=== PATIENT | female | born 1975 | race Caucasian/White ===

== ENCOUNTER 2022-07-22 12:08 | Day surgery (SDC) | payer BC, SELFPAY ==
--- NOTE | 2022-07-22 12:19 | US_ITS ---
[address] [address] Patient Name: DEANDRE MCDONALD MRN: [id number] date: 1975 Sex: F Assigned Patient Location: US Current Patient Location: US Accession/Order Number: [id number] Exam Date: 07/22/2022 12:20 Report Date: 07/22/2022 15:03 At the request of: IRMA BENNETT Procedure: US biopsy thyroid EXAMINATION: US biopsy thyroid HISTORY: Left thyroid nodule COMPARISON: No relevant comparison available. TECHNIQUE: After obtaining informed consent, ultrasound-guided fine needle aspiration was performed in the usual sterile manner. FINDINGS: IMAGING: Ultrasound. BIOPSY NEEDLE: 25-gauge; 3 separate passes LOCATION: Inferior left lobe 1.9 x 1.2 x 0.9 cm nodule. SPECIMEN TYPE: Cellular tissue. LOCAL ANESTHETIC: Buffered Xylocaine. COMPLICATIONS: None. LABORATORY: Prepared slide smears and washings for cell block evaluation. OTHER: Negative. PATHOLOGY: Pending. An addendum will be added when results are available. IMPRESSION: 1. Uneventful ultrasound guided fine needle aspiration (FNA). 2. Pathology results are pending. Electronically authenticated by: JESSEE ARGUELLO Date: 07/22/2022 15:03
[2022-07-22] MEDS: LIDOCAINE HCL 10 ML, SODIUM BICARBONATE 1 MEQ INJ (13:25)
[2022-07-22 15:52] VITALS: BP 169/101; PULSE 55; RESP 18; O2SAT 98
--- NOTE | 2022-07-22 15:57 | PC.NURSE ---
Time Out completed prior to procedure at [address] Cholo Harmon, Arielle Gordillo present in room
== END 2022-07-22 13:44 ==
PROVIDERS: Radiology Diagnostic Radiology; PCP Otolaryngology; Visit Provider Otolaryngology
DX: E04.1 Nontoxic single thyroid nodule (principal)
CPT/HCPCS: 10005; 88173

== ENCOUNTER 2023-06-06 18:04 | Emergency (ER) | payer BC, SELFPAY ==
[2023-06-06] VITALS (17 sets, daily range): BP systolic 151–190; BP diastolic 90–137; PULSE 63–84; TEMP 37; O2SAT 74–99; BMI 40.4
--- NOTE | 2023-06-06 18:06 | ECG_ITS ---
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
--- NOTE | 2023-06-06 18:12 | XR_ITS ---
The [address] [address] Patient Name: DEANDRE MCDONLAD MRN: [id number] date: 1975 Sex: F Assigned Patient Location: ER Current Patient Location: ED.MAIN Accession/Order Number: [id number] Exam Date: 06/06/2023 19:16 Report Date: 06/06/2023 20:05 At the request of: ROSEANNA GREEN Procedure: XR chest 1V EXAM: XR chest 1V HISTORY: chest pain COMPARISON: None. TECHNIQUE: Single AP radiograph of the chest FINDINGS: No pneumothorax, pleural effusion or consolidation. Normal heart size. Moderate degenerative changes of the acromioclavicular joints. Right Port-A-Cath with tip projecting over the superior cavoatrial junction. XR/XR chest 1V IMPRESSION: No acute cardiopulmonary process. Electronically authenticated by: MARGY HWANG Date: 06/06/2023 20:05
--- NOTE | 2023-06-06 18:14 | ED.GENADUL1 ---
Documented by User: ALEX Ponce 06/06/23 21:04 HPI HPI - General Adult General Chief complaint: Chest Pain Stated complaint: Chest Pain Time Seen by Provider: 06/06/23 18:05 Source: patient Mode of arrival: walk-in History of Present Illness HPI narrative: Patient is a 48-year-old female DM type 2, Thyoid CA, HTN, , former smoker quit 6 years ago who presents to the ER with concerns of left-sided chest pain. Patient reports pain in the left chest sharp radiating to her back, left arm and left side of her neck. Mild nausea. Patient states she has not eaten today, was driving with her to work when she felt off pulled over to switch drivers and had a near syncopal episode. Patient states she did not think she lost consciousness but noticed that her chest pain symptoms have intensified for the last 30 minutes. She took 2 nitroglycerin prior to arrival without relief. Patient states her was unable to get off work and continued to go to work after dropping her off. Patient reports having a cardiac catheterization 3 weeks ago and is scheduled to see a senior foreman next week. ( aspirin allergy is anaphylaxis) - Pt reports she can tolerate IV contrast studies with use of Pre-medication. Onset (ago): minute(s) (30) Location: Reports chest Radiation: Reports neck and extremity (left arm) Severity: moderate Quality: Reports sharp Pain Consistency: Reports constant Relieving factors: Reports none Exacerbating factors: Reports none Associated symptoms: Reports denies other symptoms Related Data Home Medications ?Medication ?Instructions ?Recorded ?Confirmed L.acidoph, paracasei,B. lactis 10 cell PO 07/18/22 billion cell capsule (Digestive Advantage Advanced Probiotic) biotin 10 mg PO BID 07/18/22 07/22/22 cholecalciferol 50,000 units PO .2 times a week 07/18/22 07/22/22 cholestyramine-aspartame 4 gram ea 07/18/22 oral powder for susp in a packet (Cholestyramine Light) clonidine HCl 0.1 mg tablet 0.1 mg PO DAILY 07/18/22 06/06/23 fluticasone 113 mcg-salmeterol 14 1 inh inhalation BID 07/18/22 06/06/23 mcg/actuation breath activated powdr folic acid 1 mg tablet 1 mg PO DAILY 07/18/22 06/06/23 hydroxychloroquine 200 mg tablet 200 mg PO BID 07/18/22 07/22/22 insulin lispro 100 unit/mL 1 sliding scale dose subcut 07/18/22 07/18/22 subcutaneous pen USEASDIRECTD levothyroxine 100 mcg capsule 100 mcg PO DAILY 07/18/22 07/22/22 lisinopril 10 mg tablet 10 mg PO DAILY 07/18/22 07/22/22 loratadine 10 mg tablet (Claritin) 10 mg PO DAILY 07/18/22 07/22/22 metoprolol tartrate 50 mg tablet 25 mg PO BID 07/18/22 07/22/22 multivitamin 1 tab PO DAILY 07/18/22 06/06/23 pantoprazole 40 mg tablet,delayed 40 mg PO DAILY 07/18/22 06/06/23 release cholestyramine (with sugar) 4 gram 1 ea PO DAILY 06/06/23 06/06/23 powder for susp in a packet docusate sodium 100 mg capsule 100 mg PO BID PRN constipation 06/06/23 06/06/23 levothyroxine 100 mcg tablet 100 mcg PO DAILY 06/06/23 06/06/23 lisinopril 20 mg tablet 20 mg PO DAILY 06/06/23 06/06/23 mometasone-formoterol HFA 200 2 puff inhalation BID 06/06/23 06/06/23 mcg-5 mcg/actuation aerosol inhaler (Dulera) nifedipine 30 mg tablet,extended 30 mg PO DAILY 06/06/23 06/06/23 release 24 hr tizanidine 4 mg tablet 4 mg PO TID PRN muscle spasticity 06/06/23 06/06/23 Allergies Allergy/AdvReac Type Severity Reaction Status Date / Time amoxicillin Allergy Verified 07/18/22 14:45 aspirin Allergy Verified 07/18/22 14:45 clindamycin Allergy Verified 07/18/22 14:45 Penicillins Allergy Verified 07/18/22 14:45 ketamine AdvReac Severe Verified 06/06/23 18:19 povidone-iodine AdvReac Severe Verified 07/18/22 14:45 latex AdvReac Verified 07/18/22 14:45 augmentin Allergy Uncoded 07/18/22 14:45 ketoralac Allergy Uncoded 07/18/22 14:45 Opioid HPI Opioid Management Most Recent Opioid Data: Ur Phencyclidine Scrn Negative (NEGATIVE) 06/06/23 19:50 Review of Systems ROS Constitutional Denies: fever or chills Eyes Denies: change in vision Ears, nose, mouth, and throat Denies: throat pain or neck pain Cardiovascular Reports: chest pain; Denies: palpitations or edema Respiratory Denies: shortness of breath, cough or wheezing Gastrointestinal Reports: nausea; Denies: abdominal pain or vomiting Genitourinary Denies: painful urination Musculoskeletal Denies: back pain Integumentary/Breast Denies: rash or itching Neurological Denies: headache Psychiatric Denies: anxiety Endocrine Denies: excessive urination Allergic/Immunologic Denies: hives [facility] Medical History (Updated 06/06/23 @ 21:04 by ALEX Ponce) Normal colonoscopy Normal esophagogastroduodenoscopy (EGD) ?Z01.89 - Encounter for other specified special examinations (ICD-10) Anxiety ?F41.9 - Anxiety disorder, unspecified (ICD-10) Hiatal hernia ?K44.9 - Diaphragmatic hernia without obstruction or gangrene (ICD-10) Asthma ?J45.909 - Unspecified asthma, uncomplicated (ICD-10) CVA (cerebral vascular accident) ?I63.9 - Cerebral infarction, unspecified (ICD-10) Myocardial infarct ?I21.9 - Acute myocardial infarction, unspecified (ICD-10) HTN (hypertension) ?I10 - Essential (primary) hypertension (ICD-10) Pulmonary embolism ?I26.99 - Other pulmonary embolism without acute cor pulmonale (ICD-10) Renal lithiasis ?N20.0 - Calculus of kidney (ICD-10) Fibromyalgia ?M79.7 - Fibromyalgia (ICD-10) Breast cancer, left breast ?C50.912 - Malignant neoplasm of unspecified site of left female breast (ICD-10) Arthritis ?M19.90 - Unspecified osteoarthritis, unspecified site (ICD-10) Lupus (systemic lupus erythematosus) ?M32.9 - Systemic lupus erythematosus, unspecified (ICD-10) Neuropathy ?G62.9 - Polyneuropathy, unspecified (ICD-10) Anemia ?D64.9 - Anemia, unspecified (ICD-10) Diabetes ?E11.9 - Type 2 diabetes mellitus without complications (ICD-10) Rheumatoid arthritis ?M06.9 - Rheumatoid arthritis, unspecified (ICD-10) Multiple sclerosis ?G35 - Multiple sclerosis (ICD-10) Hypothyroid ?E03.9 - Hypothyroidism, unspecified (ICD-10) Surgical History (Updated 07/18/22 @ 15:20 by Macarena Chairez) S/P lumpectomy, left breast ?Z98.890 - Other specified postprocedural states (ICD-10) History of hysterectomy ?Z90.710 - Acquired absence of both cervix and uterus (ICD-10) Previous section ?Z98.891 - History of uterine scar from previous surgery (ICD-10) H/O tubal ligation ?Z98.51 - Tubal ligation status (ICD-10) S/P appy ?Z90.49 - Acquired absence of other specified parts of digestive tract (ICD-10) History of cholecystectomy ?Z90.49 - Acquired absence of other specified parts of digestive tract (ICD-10) History of Bryanna-en-Y gastric bypass ?Z98.84 - Bariatric surgery status (ICD-10) Exam Narrative Exam Narrative: Nurses notes and vital signs reviewed and patient is not hypoxic. General: The patient appears well but anxious noting chest pain Skin: Warm, dry, no pallor noted. Head: Normocephalic, atraumatic Neck: Supple, trachea mid-line, no tenderness, no lymphadenopathy Eye: Pupils are equal, round and reactive to light, EOMI Ears, Nose, Mouth, and Throat: Poor dentition, external exam unremarkable. Cardiovascular: Regular Rate and Rhythm Respiratory: Patient is in no distress, no accessory muscle use, lungs are clear to auscultation, no wheezing, rales or rhonchi. Chest Wall: no tenderness Back: non-tender, no CVA tenderness Musculoskeletal: normal ROM, no tenderness, no swelling GI: Normal bowel sounds, no tenderness to palpation, no masses appreciated. No rebound, guarding, or rigidity noted. Neurological: A&O x4 Psychiatric: Cooperative Constitutional Vital Signs, click to edit/add: Last Vital Signs Temp 98.6 F 06/06/23 18:09 Pulse 71 06/06/23 19:16 Resp 17 06/06/23 19:16 BP 170/90 H 06/06/23 21:24 Pulse Ox 99 06/06/23 18:30 O2 Del Method Room Air 06/06/23 18:54 Course Vital Signs Vital signs: Vital Signs Temperature 98.6 F 06/06/23 18:09 Pulse Rate 72 06/06/23 18:09 Respiratory Rate 18 06/06/23 18:09 Blood Pressure 190/125 H 06/06/23 18:09 Pulse Oximetry 96 06/06/23 18:09 Oxygen Delivery Method Room Air 06/06/23 18:09 Temperature 98.6 F 06/06/23 18:09 Pulse Rate 71 06/06/23 19:16 Respiratory Rate 17 06/06/23 19:16 Blood Pressure 170/90 H 06/06/23 21:24 Pulse Oximetry 99 06/06/23 18:30 Oxygen Delivery Method Room Air 06/06/23 18:54 Medical Decision Making MDM Narrative Medical decision making narrative: Patient reports being on Eliquis previously 1 year then Dc'd. patient reports prior history of PE. She reports an anaphylactic allergy to aspirin products. She reports a allergy to contrast IV products, she has tolerated studies but require premedication. She is agreeable to start premedication treatment at this time for further evaluation of her symptoms with concern of sharp left sided chest pain, near syncopal episode. Cardiac Cath 05/17/23 Neg for occulsion. Symptoms today noted for hypertension, patient on multiple medications for blood pressure. She was given her third nitroglycerin tablet and placed on Nitropaste. Her blood pressure has improved to 160/92.Patient complaining of headache from nitroglycerin, given Tylenol for pain. We discussed waiting for premedication for CTA of the chest with risks and benefits discussed given her prior history of PE, patient agreeable. 2 sets of cardiac enzymes negative, CTA of the chest with patient's concern of prior PE, near syncopal episode and left-sided sharp chest pain also negative, patient had cardiac cath at the beginning of the month that was negative for occlusion. Recommend she continue with [id number] medications Tylenol and follow-up to her senior foreman for ongoing evaluation. I do not feel narcotic in medication is indicated at this time.Pt given 25 Mdeq potassium for correction The patient is to followup with primary care physician/ Cardiology in next 2-3 days or to return to the emergency department should any of the signs or symptoms worsen or new symptoms develop. Patient had questions answered. The patient agrees with the following Diagnosis and Treatment plan and the patient will be discharged home. Medical Records Medical records reviewed: Yes I reviewed the patient's medical records Medical records narrative: Cardiac catheterization report 05/17/2023:Postprocedure interpretation normal coronary arteries, evidence of coronary spasm at baseline relieved with IC nitroglycerin, normal left ventricular function. Lab Data Lab results reviewed: Yes I reviewed the patient's lab results Labs: Lab Results 06/06/23 06/06/23 06/06/23 Range/Units 18:48 19:47 19:50 WBC 5.9 (4.0-11.0) 10^3/uL RBC 4.54 (4.20-5.40) 10^6/uL Hgb 13.4 (12.0-16.0) g/dL Hct 40.7 (36.0-48.0) % MCV 89.6 (81.0-99.0) fL MCH 29.5 (26.7-34.0) pg MCHC 32.9 (29.9-35.2) g/dL RDW 12.7 (11.0-15.0) % Plt Count 257 (150-450) 10^3/uL MPV 9.7 (9.5-13.5) fL Neut % (Auto) 64.1 (43.0-75.0) % Lymph % (Auto) 26.2 (20.5-60.0) % [place] % (Auto) 7.3 (1.7-12.0) % Eos % (Auto) 1.9 (0.9-7.0) % Baso % (Auto) 0.3 (0.2-2.0) % Neut # (Auto) 3.8 (1.4-6.5) 10^3/uL Lymph # (Auto) 1.5 (1.2-3.8) 10^3/uL [place] # (Auto) 0.4 (0.3-0.8) 10^3/uL Eos # (Auto) 0.1 (0.0-0.7) 10^3/uL Baso # (Auto) 0.0 (0.0-0.1) 10^3/uL Abs Immat Gran (auto) 0.01 (0.00-0.03) 10^3/uL Imm/Tot Granulo (auto) 0.2 (0.0-0.5) % PT 9.5 (9.0-11.6) sec INR <0.93 APTT 29.7 (22.3-36.2) sec Sodium 144 (136-145) mmol/L Potassium 3.3 L (3.5-5.1) mmol/L Chloride 107 (98-107) mmol/L Carbon Dioxide 27.0 (21.0-32.0) mmol/L Anion Gap 13.3 BUN 14.0 (7.0-18.0) mg/dL Creatinine 1.07 H (0.55-1.02) mg/dL Est GFR ( Amer) >60 (>=60) Est GFR (Non-Af Amer) 55 L (>=60) BUN/Creatinine Ratio 13.1 Glucose 97 (74-106) mg/dL Calcium 8.5 (8.5-10.1) mg/dL Total Bilirubin 0.3 (0.2-1.0) mg/dL AST 12 L (15-37) U/L ALT 19 (14-59) U/L Alkaline Phosphatase 159 H (46-116) U/L Troponin I High Sens 8.8 5.9 (4.0-51.3) pg/mL Total Protein 7.7 (6.4-8.2) g/dL Albumin 3.7 (3.4-5.0) g/dL Globulin 4.0 g/dL Albumin/Globulin Ratio 0.9 Amylase 34 (25-115) U/L Lipase 38.0 (16.0-77.0) U/L Serum HCG, Qual Negative (NEGATIVE) Urine Color Lt. yellow (YELLOW) Urine Clarity Clear (CLEAR) Urine pH 5.5 (5.0-9.0) Ur Specific [place] 1.010 (1.005-1.025) Urine Protein Negative (NEG/TRACE) mg/dL Urine Glucose (UA) Negative (NEGATIVE) mg/dL Urine Ketones Negative (NEGATIVE) mg/dL Urine Occult Blood Small A (NEGATIVE) Urine Nitrite Negative (NEGATIVE) Urine Bilirubin Negative (NEGATIVE) Urine Urobilinogen 0.2 (0.2-1.0) EU/dL Ur Leukocyte Esterase Negative (NEGATIVE) Urine RBC 0-2 (0-2) #/HPF Urine WBC 0-2 A (NONE SEEN) #/HPF Ur Squamous Epith Cells Moderate A (NONE/RARE) #/LPF Urine Crystals None seen (None Seen) #/HPF Urine Bacteria Trace A (NONE SEEN) #/HPF Urine Casts None seen (NONE SEEN) #/LPF Urine Mucus None seen (NONE SEEN) Ur Culture Indicated? No Urine Opiates Screen Negative (NEGATIVE) Ur Buprenorphine Scrn Negative (NEGATIVE) Ur Oxycodone Screen Negative (NEGATIVE) Urine Methadone Screen Negative (NEGATIVE) Ur Barbiturates Screen Negative (NEGATIVE) U Tricyclic Antidepress Negative (NEGATIVE) Ur Phencyclidine Scrn Negative (NEGATIVE) Ur Amphetamines Screen Negative (NEGATIVE) U Methamphetamines Scrn Negative (NEGATIVE) U Benzodiazepines Scrn Negative (NEGATIVE) Urine Cocaine Screen Negative (NEGATIVE) U Cannabinoids Screen Positive A (NEGATIVE) Imaging Data Chest x-ray: Radiologist's impression: ITS Impressions Chest X-Ray 06/06/23 18:12 IMPRESSION: No acute cardiopulmonary process. Electronically authenticated by: MARGY HWANG Date: 06/06/2023 20:05 Chest CTA 06/06/23 18:30 IMPRESSION: 1. No evidence of pulmonary embolism. Electronically authenticated by: AARON PASTOR Date: 06/06/2023 20:42 CT scan - chest: Radiologist's impression: ITS Impressions Chest X-Ray 06/06/23 18:12 IMPRESSION: No acute cardiopulmonary process. Electronically authenticated by: MARGY HWANG Date: 06/06/2023 20:05 Chest CTA 06/06/23 18:30 IMPRESSION: 1. No evidence of pulmonary embolism. Electronically authenticated by: AARON PASTOR Date: 06/06/2023 20:42 Patient was observed with no evidence of allergic reaction post contrast study ECG Data Attestation: I personally reviewed and interpreted this ECG as follows: Interpretation: EKG interpretation: 18:13 Emergency Department physician interpretation, normal sinus rhythm 67 bpm, no ectopy, no ST segment elevation, normal axis. Discharge Plan Discharge Stand Alone Forms: Portal Instructions Chief Complaint: Chest Pain Clinical Impression: Chest pain, Hypertension Patient Disposition: Home, Self-Care Time of Disposition Decision: 21:02 Condition: Good Prescriptions / Home Meds: No Action biotin 10 mg PO BID cholecalciferol 50,000 units PO .2 times a week cholestyramine-aspartame [Cholestyramine Light] 4 gram powder in packet clonidine HCl 0.1 mg tablet 0.1 mg PO DAILY fluticasone propion-salmeterol 113-14 mcg/actuation aerosol powdr breath activated 1 inh inhalation BID folic acid 1 mg tablet 1 mg PO DAILY hydroxychloroquine 200 mg tablet 200 mg PO BID insulin lispro 100 unit/mL insulin pen 1 sliding scale dose subcut USEASDIRECTD levothyroxine 100 mcg capsule 100 mcg PO DAILY lisinopril 10 mg tablet 10 mg PO DAILY metoprolol tartrate 50 mg tablet 25 mg PO BID pantoprazole 40 mg tablet,delayed release (DR/EC) 40 mg PO DAILY loratadine [Claritin] 10 mg tablet 10 mg PO DAILY multivitamin Tablet 1 tab PO DAILY Digestive Advantage Advanced 10 billion cell capsule PO cholestyramine (with sugar) 4 gram powder in packet 1 ea PO DAILY docusate sodium 100 mg capsule 100 mg PO BID PRN (Reason: constipation) levothyroxine 100 mcg tablet 100 mcg PO DAILY lisinopril 20 mg tablet 20 mg PO DAILY Dulera 200-5 mcg/actuation HFA aerosol inhaler 2 puff INHALATION BID nifedipine 30 mg tablet extended release 24hr 30 mg PO DAILY tizanidine 4 mg tablet 4 mg PO TID PRN (Reason: muscle spasticity) Print Language: Ukrainian Additional Instructions: Keep your appointment with cardiology clinic next week Referrals: Miroslava Torrez NP [Primary Care Provider] - As soon as possible Discharge Date/Time: 06/06/23 21:26 Documented by User: Mustapha Marcus MD 06/07/23 20:05 HPI HPI - General Adult General Chief complaint: Chest Pain Stated complaint: Chest Pain Time Seen by Provider: 06/06/23 18:05 Related Data Home Medications ?Medication ?Instructions ?Recorded ?Confirmed L.acidoph, paracasei,B. lactis 10 cell PO 07/18/22 billion cell capsule (Digestive Advantage Advanced Probiotic) biotin 10 mg PO BID 07/18/22 07/22/22 cholecalciferol 50,000 units PO .2 times a week 07/18/22 07/22/22 cholestyramine-aspartame 4 gram ea 07/18/22 oral powder for susp in a packet (Cholestyramine Light) clonidine HCl 0.1 mg tablet 0.1 mg PO DAILY 07/18/22 06/06/23 fluticasone 113 mcg-salmeterol 14 1 inh inhalation BID 07/18/22 06/06/23 mcg/actuation breath activated powdr folic acid 1 mg tablet 1 mg PO DAILY 07/18/22 06/06/23 hydroxychloroquine 200 mg tablet 200 mg PO BID 07/18/22 07/22/22 insulin lispro 100 unit/mL 1 sliding scale dose subcut 07/18/22 07/18/22 subcutaneous pen USEASDIRECTD levothyroxine 100 mcg capsule 100 mcg PO DAILY 07/18/22 07/22/22 lisinopril 10 mg tablet 10 mg PO DAILY 07/18/22 07/22/22 loratadine 10 mg tablet (Claritin) 10 mg PO DAILY 07/18/22 07/22/22 metoprolol tartrate 50 mg tablet 25 mg PO BID 07/18/22 07/22/22 multivitamin 1 tab PO DAILY 07/18/22 06/06/23 pantoprazole 40 mg tablet,delayed 40 mg PO DAILY 07/18/22 06/06/23 release cholestyramine (with sugar) 4 gram 1 ea PO DAILY 06/06/23 06/06/23 powder for susp in a packet docusate sodium 100 mg capsule 100 mg PO BID PRN constipation 06/06/23 06/06/23 levothyroxine 100 mcg tablet 100 mcg PO DAILY 06/06/23 06/06/23 lisinopril 20 mg tablet 20 mg PO DAILY 06/06/23 06/06/23 mometasone-formoterol HFA 200 2 puff inhalation BID 06/06/23 06/06/23 mcg-5 mcg/actuation aerosol inhaler (Dulera) nifedipine 30 mg tablet,extended 30 mg PO DAILY 06/06/23 06/06/23 release 24 hr tizanidine 4 mg tablet 4 mg PO TID PRN muscle spasticity 06/06/23 06/06/23 Allergies Allergy/AdvReac Type Severity Reaction Status Date / Time amoxicillin Allergy Verified 07/18/22 14:45 aspirin Allergy Verified 07/18/22 14:45 clindamycin Allergy Verified 07/18/22 14:45 Penicillins Allergy Verified 07/18/22 14:45 ketamine AdvReac Severe Verified 06/06/23 18:19 povidone-iodine AdvReac Severe Verified 07/18/22 14:45 latex AdvReac Verified 07/18/22 14:45 augmentin Allergy Uncoded 07/18/22 14:45 ketoralac Allergy Uncoded 07/18/22 14:45 Opioid HPI Opioid Management Most Recent Opioid Data: Ur Phencyclidine Scrn Negative (NEGATIVE) 06/06/23 19:50 PFSH PFSH Medical History (Updated 06/06/23 @ 21:04 by ALEX Ponce) Normal colonoscopy Normal esophagogastroduodenoscopy (EGD) ?Z01.89 - Encounter for other specified special examinations (ICD-10) Anxiety ?F41.9 - Anxiety disorder, unspecified (ICD-10) Hiatal hernia ?K44.9 - Diaphragmatic hernia without obstruction or gangrene (ICD-10) Asthma ?J45.909 - Unspecified asthma, uncomplicated (ICD-10) CVA (cerebral vascular accident) ?I63.9 - Cerebral infarction, unspecified (ICD-10) Myocardial infarct ?I21.9 - Acute myocardial infarction, unspecified (ICD-10) HTN (hypertension) ?I10 - Essential (primary) hypertension (ICD-10) Pulmonary embolism ?I26.99 - Other pulmonary embolism without acute cor pulmonale (ICD-10) Renal lithiasis ?N20.0 - Calculus of kidney (ICD-10) Fibromyalgia ?M79.7 - Fibromyalgia (ICD-10) Breast cancer, left breast ?C50.912 - Malignant neoplasm of unspecified site of left female breast (ICD-10) Arthritis ?M19.90 - Unspecified osteoarthritis, unspecified site (ICD-10) Lupus (systemic lupus erythematosus) ?M32.9 - Systemic lupus erythematosus, unspecified (ICD-10) Neuropathy ?G62.9 - Polyneuropathy, unspecified (ICD-10) Anemia ?D64.9 - Anemia, unspecified (ICD-10) Diabetes ?E11.9 - Type 2 diabetes mellitus without complications (ICD-10) Rheumatoid arthritis ?M06.9 - Rheumatoid arthritis, unspecified (ICD-10) Multiple sclerosis ?G35 - Multiple sclerosis (ICD-10) Hypothyroid ?E03.9 - Hypothyroidism, unspecified (ICD-10) Surgical History (Updated 07/18/22 @ 15:20 by Macarena Chairez) S/P lumpectomy, left breast ?Z98.890 - Other specified postprocedural states (ICD-10) History of hysterectomy ?Z90.710 - Acquired absence of both cervix and uterus (ICD-10) Previous section ?Z98.891 - History of uterine scar from previous surgery (ICD-10) H/O tubal ligation ?Z98.51 - Tubal ligation status (ICD-10) S/P appy ?Z90.49 - Acquired absence of other specified parts of digestive tract (ICD-10) History of cholecystectomy ?Z90.49 - Acquired absence of other specified parts of digestive tract (ICD-10) History of Bryanna-en-Y gastric bypass ?Z98.84 - Bariatric surgery status (ICD-10) Exam Constitutional Vital Signs, click to edit/add: Last Vital Signs Temp 98.6 F 06/06/23 18:09 Pulse 71 06/06/23 19:16 Resp 17 06/06/23 19:16 BP 170/90 H 06/06/23 21:24 Pulse Ox 99 06/06/23 18:30 O2 Del Method Room Air 06/06/23 18:54 Course Vital Signs Vital signs: Vital Signs Temperature 98.6 F 06/06/23 18:09 Pulse Rate 72 06/06/23 18:09 Respiratory Rate 18 06/06/23 18:09 Blood Pressure 190/125 H 06/06/23 18:09 Pulse Oximetry 96 06/06/23 18:09 Oxygen Delivery Method Room Air 06/06/23 18:09 Temperature 98.6 F 06/06/23 18:09 Pulse Rate 71 06/06/23 19:16 Respiratory Rate 17 06/06/23 19:16 Blood Pressure 170/90 H 06/06/23 21:24 Pulse Oximetry 99 06/06/23 18:30 Oxygen Delivery Method Room Air 06/06/23 18:54 Medical Decision Making MDM Narrative Medical decision making narrative: Patient reports being on Eliquis previously 1 year then Dc'd. patient reports prior history of PE. She reports an anaphylactic allergy to aspirin products. She reports a allergy to contrast IV products, she has tolerated studies but require premedication. She is agreeable to start premedication treatment at this time for further evaluation of her symptoms with concern of sharp left sided chest pain, near syncopal episode. Cardiac Cath 05/17/23 Neg for occulsion. Symptoms today noted for hypertension, patient on multiple medications for blood pressure. She was given her third nitroglycerin tablet and placed on Nitropaste. Her blood pressure has improved to 160/92.Patient complaining of headache from nitroglycerin, given Tylenol for pain. We discussed waiting for premedication for CTA of the chest with risks and benefits discussed given her prior history of PE, patient agreeable. 2 sets of cardiac enzymes negative, CTA of the chest with patient's concern of prior PE, near syncopal episode and left-sided sharp chest pain also negative, patient had cardiac cath at the beginning of the month that was negative for occlusion. Recommend she continue with [id number] medications Tylenol and follow-up to her senior foreman for ongoing evaluation. I do not feel narcotic in medication is indicated at this time.Pt given 25 Mdeq potassium for correction The patient is to followup with primary care physician/ Cardiology in next 2-3 days or to return to the emergency department should any of the signs or symptoms worsen or new symptoms develop. Patient had questions answered. The patient agrees with the following Diagnosis and Treatment plan and the patient will be discharged home. I, Dr Marcus, have reviewed the above progress note and course of action in the ER; agree with the above. I have gone over history and physical, and discussed disposition and treatment plan with the patient. Lab Data Labs: Lab Results 06/06/23 06/06/23 06/06/23 Range/Units 18:48 19:47 19:50 WBC 5.9 (4.0-11.0) 10^3/uL RBC 4.54 (4.20-5.40) 10^6/uL Hgb 13.4 (12.0-16.0) g/dL Hct 40.7 (36.0-48.0) % MCV 89.6 (81.0-99.0) fL MCH 29.5 (26.7-34.0) pg MCHC 32.9 (29.9-35.2) g/dL RDW 12.7 (11.0-15.0) % Plt Count 257 (150-450) 10^3/uL MPV 9.7 (9.5-13.5) fL Neut % (Auto) 64.1 (43.0-75.0) % Lymph % (Auto) 26.2 (20.5-60.0) % [place] % (Auto) 7.3 (1.7-12.0) % Eos % (Auto) 1.9 (0.9-7.0) % Baso % (Auto) 0.3 (0.2-2.0) % Neut # (Auto) 3.8 (1.4-6.5) 10^3/uL Lymph # (Auto) 1.5 (1.2-3.8) 10^3/uL [place] # (Auto) 0.4 (0.3-0.8) 10^3/uL Eos # (Auto) 0.1 (0.0-0.7) 10^3/uL Baso # (Auto) 0.0 (0.0-0.1) 10^3/uL Abs Immat Gran (auto) 0.01 (0.00-0.03) 10^3/uL Imm/Tot Granulo (auto) 0.2 (0.0-0.5) % PT 9.5 (9.0-11.6) sec INR <0.93 APTT 29.7 (22.3-36.2) sec Sodium 144 (136-145) mmol/L Potassium 3.3 L (3.5-5.1) mmol/L Chloride 107 (98-107) mmol/L Carbon Dioxide 27.0 (21.0-32.0) mmol/L Anion Gap 13.3 BUN 14.0 (7.0-18.0) mg/dL Creatinine 1.07 H (0.55-1.02) mg/dL Est GFR ( Amer) >60 (>=60) Est GFR (Non-Af Amer) 55 L (>=60) BUN/Creatinine Ratio 13.1 Glucose 97 (74-106) mg/dL Calcium 8.5 (8.5-10.1) mg/dL Total Bilirubin 0.3 (0.2-1.0) mg/dL AST 12 L (15-37) U/L ALT 19 (14-59) U/L Alkaline Phosphatase 159 H (46-116) U/L Troponin I High Sens 8.8 5.9 (4.0-51.3) pg/mL Total Protein 7.7 (6.4-8.2) g/dL Albumin 3.7 (3.4-5.0) g/dL Globulin 4.0 g/dL Albumin/Globulin Ratio 0.9 Amylase 34 (25-115) U/L Lipase 38.0 (16.0-77.0) U/L Serum HCG, Qual Negative (NEGATIVE) Urine Color Lt. yellow (YELLOW) Urine Clarity Clear (CLEAR) Urine pH 5.5 (5.0-9.0) Ur Specific [place] 1.010 (1.005-1.025) Urine Protein Negative (NEG/TRACE) mg/dL Urine Glucose (UA) Negative (NEGATIVE) mg/dL Urine Ketones Negative (NEGATIVE) mg/dL Urine Occult Blood Small A (NEGATIVE) Urine Nitrite Negative (NEGATIVE) Urine Bilirubin Negative (NEGATIVE) Urine Urobilinogen 0.2 (0.2-1.0) EU/dL Ur Leukocyte Esterase Negative (NEGATIVE) Urine RBC 0-2 (0-2) #/HPF Urine WBC 0-2 A (NONE SEEN) #/HPF Ur Squamous Epith Cells Moderate A (NONE/RARE) #/LPF Urine Crystals None seen (None Seen) #/HPF Urine Bacteria Trace A (NONE SEEN) #/HPF Urine Casts None seen (NONE SEEN) #/LPF Urine Mucus None seen (NONE SEEN) Ur Culture Indicated? No Urine Opiates Screen Negative (NEGATIVE) Ur Buprenorphine Scrn Negative (NEGATIVE) Ur Oxycodone Screen Negative (NEGATIVE) Urine Methadone Screen Negative (NEGATIVE) Ur Barbiturates Screen Negative (NEGATIVE) U Tricyclic Antidepress Negative (NEGATIVE) Ur Phencyclidine Scrn Negative (NEGATIVE) Ur Amphetamines Screen Negative (NEGATIVE) U Methamphetamines Scrn Negative (NEGATIVE) U Benzodiazepines Scrn Negative (NEGATIVE) Urine Cocaine Screen Negative (NEGATIVE) U Cannabinoids Screen Positive A (NEGATIVE) Imaging Data Chest x-ray: Radiologist's impression: ITS Impressions Chest X-Ray 06/06/23 18:12 IMPRESSION: No acute cardiopulmonary process. Electronically authenticated by: MARGY HWANG Date: 06/06/2023 20:05 Chest CTA 06/06/23 18:30 IMPRESSION: 1. No evidence of pulmonary embolism. Electronically authenticated by: AARON PASTOR Date: 06/06/2023 20:42 CT scan - chest: Radiologist's impression: ITS Impressions Chest X-Ray 06/06/23 18:12 IMPRESSION: No acute cardiopulmonary process. Electronically authenticated by: MARGY HWANG Date: 06/06/2023 20:05 Chest CTA 06/06/23 18:30 IMPRESSION: 1. No evidence of pulmonary embolism. Electronically authenticated by: AARON PASTOR Date: 06/06/2023 20:42 Discharge Plan Discharge Stand Alone Forms: Portal Instructions Chief Complaint: Chest Pain Clinical Impression: Chest pain, Hypertension Patient Disposition: Home, Self-Care Time of Disposition Decision: 21:02 Condition: Good Prescriptions / Home Meds: No Action biotin 10 mg PO BID cholecalciferol 50,000 units PO .2 times a week cholestyramine-aspartame [Cholestyramine Light] 4 gram powder in packet clonidine HCl 0.1 mg tablet 0.1 mg PO DAILY fluticasone propion-salmeterol 113-14 mcg/actuation aerosol powdr breath activated 1 inh inhalation BID folic acid 1 mg tablet 1 mg PO DAILY hydroxychloroquine 200 mg tablet 200 mg PO BID insulin lispro 100 unit/mL insulin pen 1 sliding scale dose subcut USEASDIRECTD levothyroxine 100 mcg capsule 100 mcg PO DAILY lisinopril 10 mg tablet 10 mg PO DAILY metoprolol tartrate 50 mg tablet 25 mg PO BID pantoprazole 40 mg tablet,delayed release (DR/EC) 40 mg PO DAILY loratadine [Claritin] 10 mg tablet 10 mg PO DAILY multivitamin Tablet 1 tab PO DAILY Digestive Advantage Advanced 10 billion cell capsule PO cholestyramine (with sugar) 4 gram powder in packet 1 ea PO DAILY docusate sodium 100 mg capsule 100 mg PO BID PRN (Reason: constipation) levothyroxine 100 mcg tablet 100 mcg PO DAILY lisinopril 20 mg tablet 20 mg PO DAILY Dulera 200-5 mcg/actuation HFA aerosol inhaler 2 puff INHALATION BID nifedipine 30 mg tablet extended release 24hr 30 mg PO DAILY tizanidine 4 mg tablet 4 mg PO TID PRN (Reason: muscle spasticity) Print Language: Ukrainian Additional Instructions: Keep your appointment with cardiology clinic next week Referrals: Miroslava Torrez NP [Primary Care Provider] - As soon as possible Discharge Date/Time: 06/06/23 21:26
--- NOTE | 2023-06-06 18:30 | CT_ITS ---
The [address] [address] Patient Name: DEANDRE MCDONALD MRN: [id number] date: 1975 Sex: F Assigned Patient Location: ER Current Patient Location: ER Accession/Order Number: [id number] Exam Date: 06/06/2023 20:05 Report Date: 06/06/2023 20:42 At the request of: ROSEANNA GREEN Procedure: CT angio chest CT angio chest HISTORY: history of PE, Chest pain, near syncope ( premed) TECHNIQUE: CTA chest with intravenous contrast attention to pulmonary arteries. Sagittal, coronal and slab 3D MIP coronal reconstructed images were also created for further evaluation and interpretation. One of the following dose optimization techniques was utilized in the performance of this exam: Automated exposure control; adjustment of the mA and/or kV according to the patient's size; or use of an iterative reconstruction technique. Specific details can be referenced in the facility's radiology CT exam operational policy. COMPARISON: None. FINDINGS: Heart/vessels: Negative. Mediastinum: Negative. Lymph nodes: Negative. Lungs/pleura: Negative. Visualized upper abdomen: Negative. Bones/soft tissues: Negative. CT/CT angio chest IMPRESSION: 1. No evidence of pulmonary embolism. Electronically authenticated by: AARON PASTOR Date: 06/06/2023 20:42
[2023-06-06] MEDS: NITROGLYCERIN 0.4 MG BOTTLE 0.400000000000000022 MG SL (18:52)
[2023-06-06] MEDS: NITROGLYCERIN 0.1 MG/HR PATCH.TD24 1 EACH TD (18:53)
[2023-06-06 18:54] LABS: Basophils Percent Auto 0.3 % (0.2-2.0); Eosinophils Absolute Auto 0.1 10^3/uL (0.0-0.7); Eosinophils Percent Auto 1.9 % (0.9-7.0); Hematocrit 40.7 % (36.0-48.0); Hemoglobin 13.4 g/dL (12.0-16.0); Immature Granulocytes Abs Auto 0.01 10^3/uL (0.00-0.03); Immature Granulocytes Pct Auto 0.2 % (0.0-0.5); Lymphocytes Absolute Auto 1.5 10^3/uL (1.2-3.8); Lymphocytes Percent Auto 26.2 % (20.5-60.0); Mean Corpuscular HGB Conc 32.9 g/dL (29.9-35.2); Mean Corpuscular Hemoglobin 29.5 pg (26.7-34.0); Mean Corpuscular Volume 89.6 fL (81.0-99.0); Mean Platelet Volume 9.7 fL (9.5-13.5); Monocytes Absolute Auto 0.4 10^3/uL (0.3-0.8); Monocytes Percent Auto 7.3 % (1.7-12.0); Neutrophils Absolute Auto 3.8 10^3/uL (1.4-6.5); Neutrophils Percent Auto 64.1 % (43.0-75.0); Platelet Count 257 10^3/uL (150-450); Red Blood Count 4.54 10^6/uL (4.20-5.40); Red Cell Distribution Width 12.7 % (11.0-15.0); White Blood Count 5.9 10^3/uL (4.0-11.0)
--- NOTE | 2023-06-06 18:54 | PC.NURSE ---
pain rated 8/10, nitro SL given will reassess in 5 min.
--- NOTE | 2023-06-06 18:55 | PC.NURSE ---
bernardo transdermal patch placed to postior right shoulder
[2023-06-06] MEDS: FAMOTIDINE/PF 20 MG/2 ML VIAL IV (19:02)
[2023-06-06] MEDS: METHYLPREDNISOLONE SOD SUCC PF 125 MG/2 ML VIAL 100 MG IVP (19:02)
[2023-06-06] MEDS: DIPHENHYDRAMINE HCL 50 MG/ML (1ML) VIAL IV (19:03)
[2023-06-06] MEDS: ACETAMINOPHEN 500 MG TABLET 1000 MG PO (19:05)
[2023-06-06 19:07] LABS: HCG Qualitative NEGATIVE (NEGATIVE)
[2023-06-06 19:10] LABS: Partial Thromboplastin Time 29.7 sec (22.3-36.2); Prothrombin Time 9.5 sec (9.0-11.6)
[2023-06-06 19:13] LABS: Alanine Aminotransferase 19 U/L (14-59); Albumin Globulin Ratio 0.9; Albumin Level 3.7 g/dL (3.4-5.0); Alkaline Phosphatase 159 U/L (46-116); Anion Gap 13.3; Aspartate Amino Transferase 12 U/L (15-37); BUN Creatinine Ratio 13.1; Bilirubin Total 0.3 mg/dL (0.2-1.0); Calcium 8.5 mg/dL (8.5-10.1); Chloride 107 mmol/L (98-107); Estimated GFR (African America >60 (>=60); Estimated GFR (Non-African Ame 55 (>=60); Glucose 97 mg/dL (74-106); Potassium 3.3 mmol/L (3.5-5.1); Sodium 144 mmol/L (136-145); Total Protein 7.7 g/dL (6.4-8.2)
--- NOTE | 2023-06-06 19:14 | PC.NURSE ---
rates chest at a 8/10, no change with nitro, PA notified
[2023-06-06 19:15] LABS: Amylase 34 U/L (25-115); INR <0.93; Troponin I High Sensitivity 8.8 pg/mL (4.0-51.3)
[2023-06-06 20:12] LABS: Bilirubin Urine NEGATIVE (NEGATIVE); Blood Urine SMALL (NEGATIVE); Clarity Urine CLEAR (CLEAR); Color Urine LT. YELLOW (YELLOW); Glucose Urine UA NEGATIVE (NEGATIVE); Ketones Urine NEGATIVE (NEGATIVE); Leukocyte Esterase Urine NEGATIVE (NEGATIVE); Nitrite Urine NEGATIVE (NEGATIVE); Protein Urine NEGATIVE (NEG/TRACE); Urobilinogen Urine 0.2 EU/dL (0.2-1.0); pH Urine 5.5 (5.0-9.0)
[2023-06-06 20:21] LABS: Urine Microscopic Indicated YES
[2023-06-06 20:22] LABS: Amphetamine Screen Urine NEGATIVE (NEGATIVE); Barbiturates Screen Urine NEGATIVE (NEGATIVE); Benzodiazepines Screen Urine NEGATIVE (NEGATIVE); Buprenorphine Screen Urine NEGATIVE (NEGATIVE); Cannabinoid Screen Urine POSITIVE (NEGATIVE); Cocaine Screen Urine NEGATIVE (NEGATIVE); Methadone Screen Urine NEGATIVE (NEGATIVE); Methamphetamines Screen Urine NEGATIVE (NEGATIVE); Opiate Screen Urine NEGATIVE (NEGATIVE); Oxycodone Screen Urine NEGATIVE (NEGATIVE); Phencyclidine Screen Urine NEGATIVE (NEGATIVE); Tricyclic Antidepressant Urine NEGATIVE (NEGATIVE)
[2023-06-06 20:27] LABS: Bacteria Urine TRACE #/HPF (NONE SEEN); Cast Seen? NONE SEEN #/LPF (NONE SEEN); Crystals Seen? None Seen #/HPF (None Seen); Mucus Urine NONE SEEN (NONE SEEN); RBC Urine 0-2 #/HPF (0-2); Squamous Epithelial Cell Urine MODERATE #/LPF (NONE/RARE); Urine Culture Indicated NO; WBC Urine 0-2 #/HPF (NONE SEEN)
[2023-06-06 20:50] LABS: Troponin I High Sensitivity 5.9 pg/mL (4.0-51.3)
[2023-06-06] MEDS: POTASSIUM BICARBONATE/CIT 25 MEQ TABLET EFF PO (21:17)
== END 2023-06-06 21:26 | disposition home or self-care (01) ==
PROVIDERS: Personal Emergency Response Attendant; Emergency Provider Emergency Medicine; PCP Nurse Practitioner Family
DX: R07.9 Chest pain, unspecified (principal); I10 Essential (primary) hypertension; E11.9 Type 2 diabetes mellitus without complications; F41.9 Anxiety disorder, unspecified; J45.909 Unspecified asthma, uncomplicated; I25.2 Old myocardial infarction; M79.7 Fibromyalgia; M19.90 Unspecified osteoarthritis, unspecified site; M32.9 Systemic lupus erythematosus, unspecified; M06.9 Rheumatoid arthritis, unspecified; G35 Multiple sclerosis; E03.9 Hypothyroidism, unspecified; Z98.890 Other specified postprocedural states; Z86.73 Personal history of transient ischemic attack (TIA), and cerebral infarction without residual deficits; Z85.3 Personal history of malignant neoplasm of breast; Z87.891 Personal history of nicotine dependence; Z85.850 Personal history of malignant neoplasm of thyroid; Z79.899 Other long term (current) drug therapy; Z79.890 Hormone replacement therapy; Z79.4 Long term (current) use of insulin; Z90.710 Acquired absence of both cervix and uterus; Z90.49 Acquired absence of other specified parts of digestive tract; Z98.84 Bariatric surgery status; Z86.711 Personal history of pulmonary embolism
CPT/HCPCS: 36415; 71045; 71275; 80053; 80307; 81001; 82150; 83690; 84484; 84703; 85025; 85610; 85730; 93005; 96374; 96375; 99285; J2919; Q9967